=== PATIENT | male | born 1990 | race Caucasian/White ===

== ENCOUNTER 2020-10-25 13:47 | Emergency (ER) | payer SELFPAY ==
[~2020-10-25] VITALS: Ht 172.7 cm; Wt 72.0 kg
[2020-10-25] MEDS ORDERED: SODIUM CHLORIDE 0.9% 1,000 ML IV ONE (14:15)
[2020-10-25] MEDS ORDERED: LORAZEPAM 1MG TABLET PO ONE (14:15)
[2020-10-25 14:28] LABS: BASOPHILS % 1.2 % (0.0-2.0); EOSINOPHILS % 0.5 % (0.0-5.0); HEMATOCRIT. 40.4 % (42.0-52.0); HEMOGLOBIN. 13.7 g/dL (14.0-18.0); LYMPHOCYTES % 23.6 % (20.0-50.0); MEAN CORPUSCULAR HEMOGLOBIN 29.9 pg (28.0-32.0); MEAN CORPUSCULAR VOLUME 88.3 fL (80.0-94.0); MEAN PLATELET VOLUME 8.6 fl (7.4-10.4); MONOCYTES % 7.5 % (2.0-8.0); NEUTROPHILS % 67.2 % (40.0-76.0); PLATELET 274 x1000/uL (130-400); RED BLOOD CELL COUNT 4.57 mill/uL (4.7-6.1); RED CELL DISTRIBUTION WIDTH 13.5 % (11.6-14.6)
[2020-10-25 14:39] LABS: CHLORIDE 107 mEq/L (98-107)
[2020-10-25 14:43] LABS: ETHANOL BLOOD < 10 mg/dL
[2020-10-25 16:00] VITALS: BP 114/75
== END 2020-10-25 16:29 | disposition home or self-care (01) ==
LOC: ER 14:17
DX: F41.9 Anxiety disorder, unspecified (principal); F17.200 Nicotine dependence, unspecified, uncomplicated; F12.10 Cannabis abuse, uncomplicated; F15.10 Other stimulant abuse, uncomplicated; J45.909 Unspecified asthma, uncomplicated
CPT/HCPCS: 36415; 80053; 80320; 84484; 85025; 93005; 96360; 99284; J7030; G0480